=== PATIENT | male | born 1960 | race Caucasian/White ===

== ENCOUNTER → 2023-11-05 06:41 | Outpatient (REF) | payer BC, SELFPAY | LOC: MRI 06:41 | PROVIDERS: ATTENDING PHYSICIAN Family Medicine | DX: M51.36 Other intervertebral disc degeneration, lumbar region (principal); M54.16 Radiculopathy, lumbar region | CPT/HCPCS: 72148 ==

== ENCOUNTER → 2024-09-27 14:13 | Outpatient (REF) | payer BC, SELFPAY | LOC: RCS 14:13 | PROVIDERS: ATTENDING PHYSICIAN Nurse Practitioner; FAMILY PHYSICIAN Family Medicine | DX: I42.8 Other cardiomyopathies (principal) | CPT/HCPCS: 93306 ==